=== PATIENT | male | born 1985 | race Caucasian/White ===

== ENCOUNTER 2021-02-24 01:31 | Emergency (ER) | payer MEDICAID, SELFPAY ==
[2021-02-24 01:32] VITALS: BP 155/88; PULSE 85; RESP 18; O2SAT 98
[2021-02-24 01:33] VITALS: PULSE 88; RESP 18; TEMP 36.6; O2SAT 98; BMI 28.8
[2021-02-24] MEDS: Phenobarbital 32.4 MG Tablet PO (02:18)
[2021-02-24] MEDS: proMETHazine 25 MG Tablet PO (02:18)
[2021-02-24] MEDS: 0.9% Normal Saline 1,000 ML 999 ML IV (02:43)
--- NOTE | 2021-02-24 03:26 | EDS_ITS ---
HPI History of Present Illness Chief Complaint: Substance Abuse Narrative Narrative: Patient is a 35-year-old male with a history of of heroin and fentanyl opioid abuse. He has been in an outpatient rehab facility for the last 3 to 4 days. He states he has been having some nausea with loose stool. He states has been taking the medications they have been providing but he feels like the medications are not helping enough. He states he cannot sleep because he is nervous and anxious and can not turn off his brain. Secondary to this he comes the ER for evaluation [facility] Medical History (Updated 02/24/21 @ 03:[address] Saulo Forrester DO) Overdose Renal failure Substance abuse Home Medications citalopram [Celexa] 20 mg PO DAILY 02/24/21 [History Last Taken Unknown] Allergy/AdvReac Type Severity Reaction Status Date / Time No Known Allergies Allergy Verified 02/24/21 01:37 Surgical History (Updated 02/24/21 @ 01:40 by Amelia Swan) Hx of tonsillectomy Social History Smoking Status: Current every day smoker tobacco type: cigarettes ROS ROS ED Constitutional Constitutional ED: Denies chills or fever(s) ENT ENT ED: Denies sore throat Cardiovascular Cardiovascular: Denies chest pain Respiratory/Chest Respiratory/Chest: Denies cough or dyspnea Gastrointestinal Gastrointestinal: Reports diarrhea and nausea; Denies abdominal pain or vomiting Genitourinary Genitourinary ED: Denies dysuria Musculoskeletal Musculoskeletal: Reports myalgias Integumentary Denies rash Neurologic Neurologic: Denies headache(s) Psychiatric Psychiatric: Reports anxiety; Denies suicidal ideation or suicidal thoughts Hematologic/Lymphatic Hematologic/Lymphatic: Denies easy bleeding or easy bruising EXAM Physical Exam Const Vital Signs: 02/24/21 01:32 02/24/21 01:33 Temperature 97.8 F Temperature Source Oral Pulse Rate 85 88 Respiratory Rate 18 18 Blood Pressure 155/88 H Blood Pressure Mean 110 Pulse Ox 98 98 Oxygen Delivery Method Room Air Room Air Positive well nourished and well developed General Appearance ED: well developed HEENT Reports dry mucous membranes Mouth ED: Yes dry mucous membranes Mouth: dry mucous membranes Eyes PERRL and EOMs intact bilaterally Neck supple Resp normal respiratory effort and clear to auscultation bilaterally Cardio regular rate and regular rhythm GI non-tender and non-distended GI Narrative: Bowel sounds are hyperactive Palpation: soft Extremity normal to inspection Neuro oriented x3 and CN's II-XII intact bilaterally Sensorium / Orientation: alert Psych Psych Narrative: No homicidal or suicidal ideation Mood & Affect: anxious Skin no rashes or lesions noted Skin Narrative: Skin turgor slightly increased MDM MDM MDM Narrative Medical decision making narrative: Patient presented to the ER with stable vitals. He reported he has been in an outpatient rehab for 3 to 4 days. Therefore at this time I do not feel there is need for admission to our facility for opioid withdrawal as he is already completed 72 to 96 hours. His exam shows mild opioid withdrawal symptoms and mild dehydration so he will be given a liter of fluid as well as oral Phenergan and phenobarbital. On reevaluation he is resting comfortably and was able to sleep with the medication provided. Therefo re at this time he will be discharged and can continue his outpatient treatment for opioid dependence and withdrawal. Discharge Plan Triage Chief Complaint: Substance Abuse ED Provider: Saulo Forrester Dx/Rx/DC Orders Clinical Impression: Opioid withdrawal Instructions: Addiction: Getting Help, ED Opioid Withdrawal Prescriptions: No Action citalopram [Celexa] 20 mg Tablet 20 mg PO DAILY RF: 0 Referrals: JUMANA HAIDER [Other] Disposition Disposition: Home, Self Care
[2021-02-24 04:08] VITALS: BP 119/76; PULSE 81; RESP 16; O2SAT 98
== END 2021-02-24 04:10 | disposition home or self-care (01) ==
PROVIDERS: Emergency Provider Emergency Medicine; Visit Provider Emergency Medicine
DX: F11.23 Opioid dependence with withdrawal (principal); F17.210 Nicotine dependence, cigarettes, uncomplicated
CPT/HCPCS: 96360; 99285; J7030; A4216

== ENCOUNTER 2021-02-24 20:28 | Emergency (ER) | payer MEDICAID, SELFPAY ==
[2021-02-24 20:29] VITALS: BP 135/87; PULSE 93; RESP 14; TEMP 36.4; O2SAT 97; BMI 28.6
[2021-02-24] MEDS: cycloBENZAPRine HCl 10 MG Tablet PO (21:08)
[2021-02-24] MEDS: Ketorolac 15 MG/ML Vial IV (21:08)
[2021-02-24] MEDS: 0.9% Normal Saline 1,000 ML 1000 ML IV (21:08)
[2021-02-24] MEDS: Ondansetron 4 MG/2 ML Vial IV (21:09)
[2021-02-24] MEDS: cloNIDine HCl 0.1 MG Tablet PO ×2 (21:14→22:47)
[2021-02-24 21:18] LABS: Absolute Lymphocyte Count 2.62 X10^3/uL (0.83-4.51); Absolute Neutrophil Count 4.3 X10^3/uL (2.0-7.7); Basophil# 0.03 X10^3/uL; Basophil% 0.4 % (0-1); Eosinophil# 0.13 X10^3/uL; Eosinophils% 1.7 % (0-5); Hematocrit 40.8 % (40-54); Hemoglobin 13.9 g/dL (13.0-16.5); Lymphocyte # 2.62 X10^3/ul (0.83-4.51); Lymphocyte % 33.5 % (19-41); Mean Corp Hgb Conc 34.1 g/dL (32-36); Mean Corpuscular Hgb 31.1 pg (27.0-32.0); Mean Corpuscular Volume 91.3 fL (80-94); Mean Platelet Vol. 8.6 fl (6.2-12.0); Monocyte# 0.74 X10^3/uL; Monocyte% 9.5 % (0-10); NRBC Flagged by Analyzer 0 % (0-5); Neutrophil # 4.27 X10^3/uL (2.7-7.7); Neutrophil % 54.6 % (47-70); Platelet Count 278 K/mm3 (150-450); RBC Distribution Width CV 12.9 % (11.6-14.6); RBC Distribution Width SD 42.6 fl (35.1-43.9); Red Blood Count 4.47 M/mm3 (4.6-6.2); White Blood Count 7.8 K/mm3 (4.4-11.0)
[2021-02-24 21:34] LABS: ALB/GLOB Ratio 0.9 RATIO (0.9-2.4); AST(SGOT) 26 U/L (15-37); Alanine Aminotransfer ALT/SGPT 74 U/L (16-61); Albumin, Serum 3.6 g/dL (3.2-5.0); Alkaline Phosphatase 77 U/L (45-117); Anion Gap 7 (5-15); BUN 15 mg/dL (7-18); BUN/Creat Ratio 17.6 RATIO (10-20); Calcium,Total 9.2 mg/dL (8.5-10.1); Chloride 108 mmol/L (98-107); Creatinine, Serum 0.85 mg/dL (0.70-1.30); EST Glomerular Filtration Rate 110 mL/min (>60); Est Glom Filt Rate - Afr Amer 133 mL/min (>60); Estimated Creatinine Clearance 119.59 ml/min; Glucose 109 mg/dL (74-106); Lipase 316 U/L (73-393); Potassium 4.9 mmol/L (3.5-5.1); Protein, Total 7.6 g/dL (6.4-8.2); Sodium Level 140 mmol/L (136-145)
[2021-02-24] MEDS: traMADol 50 MG Tablet PO (22:06)
[2021-02-24 22:25] LABS: CPK Total, Creatine Kinase 56 U/L (39-308)
[2021-02-24 22:28] VITALS: BP 182/134; PULSE 99; RESP 16; O2SAT 99
--- NOTE | 2021-02-24 22:40 | EX.ED.DYSGE1 ---
HPI History of Present Illness Chief Complaint: Abd Pain Informant: patient Narrative Narrative: Patient presents for control of withdrawal symptoms. He used to be on Suboxone until sometime in January. He uses fentanyl and does inject. He has not had fevers or chills. He also uses benzodiazepines up to 2 mg a day of Xanax. He is not sure how much fentanyl he uses because it varies. He states fentanyl is his biggest problem and he uses Xanax when he can. He has cramps, nausea. Sounds like he has not had diarrhea. No diaphoresis. He states he just feels bad. He has cramping in stomach and other areas. He is set to be back on Suboxone on Friday. He was here earlier. He had stated he was 3 days in detox. However, he states it was not detox but rehab. They did not provide medicines for withdrawal. He was using while he was there. His last use was 2 days ago. He states these are typical withdrawal symptoms for him. He does not use alcohol. [facility] Medical History Overdose Renal failure Substance abuse Home Medications citalopram [Celexa] 20 mg PO DAILY 02/24/21 [History Last Taken Unknown] clonidine HCl 0.1 mg PO TID PRN #10 tab 02/24/21 [Rx Last Taken Unknown] promethazine 25 mg PO Q6H PRN #10 tab 02/24/21 [Rx Last Taken Unknown] Allergy/AdvReac Type Severity Reaction Status Date / Time No Known Allergies Allergy Verified 02/24/21 20:34 Surgical History Hx of tonsillectomy Social History Smoking Status: Current every day smoker tobacco type: cigarettes ROS ROS ED Constitutional Constitutional ED: Reports chills and subjective; Denies fever(s) or sweats Eyes Eyes: Denies blurry vision ENT ENT ED: Reports rhinorrhea; Denies sore throat Cardiovascular Cardiovascular: Denies chest pain or palpitations Respiratory/Chest Respiratory/Chest: Denies cough, dyspnea or sputum Gastrointestinal Gastrointestinal: Reports abdominal pain and nausea; Denies diarrhea or vomiting Genitourinary Genitourinary ED: Denies dysuria Musculoskeletal Musculoskeletal: Reports myalgias; Denies arthralgias Integumentary Denies rash Neurologic Neurologic: Denies headache(s) Psychiatric Psychiatric: Reports anxiety Endocrine Endocrinology: Denies polydipsia or polyuria Allergic/Immunologic Allergic/Immunologic ED: Denies mouth swelling or urticaria EXAM Physical Exam Const Vital Signs: 02/24/21 20:29 02/24/21 22:28 Temperature 97.5 F L Temperature Source Temporal Pulse Rate 93 99 Respiratory Rate 14 16 Blood Pressure 135/87 H 182/134 H Blood Pressure Mean 103 150 Pulse Ox 97 99 Oxygen Delivery Method Room Air Room Air Positive well nourished and well developed General Appearance ED: well developed; Negative for cyanotic, diaphoretic or pallor HEENT Reports dry mucous membranes Mouth ED: Yes dry mucous membranes Mouth: dry mucous membranes Eyes General Eye ED: Negative for pale conjunctiva or scleral icterus Neck no JVD Chest Wall inspection of chest normal Resp normal respiratory effort and clear to auscultation bilaterally Effort and Inspection: Negative for pain with movement Auscultation: Negative for rales, rhonchi or wheezes Cardio regular rate and regular rhythm Rate: Negative for tachycardic GI normal to inspection, nondistended, normoactive bowel sounds, non-tender and non-distended Palpation: soft Back/Spine no CVA tenderness Extremity normal to inspection Neuro oriented x3 Sensorium / Orientation: alert Psych Attitude: agitated Mood & Affect: anxious and tearful Skin no rashes or lesions noted Skin Narrative: No diaphoresis or piloerection. General Skin Exam: Negative for jaundice or pallor MDM MDM MDM Narrative Medical decision making narrative: I did repeat some of the patient's blood work. CBC shows no acute process. Electrolytes look good. No sign of dehydration. LFTs are normal. CPKs normal. Lipase is normal. Patient is given IV fluids. He is given multiple meds to try to calm his symptoms. When I walk in the room, patient is resting quietly. After I walk in the room he starts shaking his legs. But he is feeling a bit better. We have added further medications. He has been given IV fluids. There is been no vomiting here. Blood pressure did go up. We will get more clonidine and also Benadryl to see if this helps him. We discussed with hospitalist. He would prefer to not admit with benzodiazepine use. He did request contact Dr. Way to get her input on possible benzo management. We can not reach her at this time. We will continue to try to help his symptoms so he can get followup Friday for Suboxone. He is much calmer after meds. We will give him 1 dose of benzodiazepine to try to help calm this down. I cannot admit him here. With the current Covid situation, transfer is not possible. He has arrangements for Suboxone in about 30 to 36 hours. I will write for some clonidine and Phenergan. He can also use [id number] Benadryl. He can also use Tylenol for any aches. Lab Data Attestation: I reviewed the patient's lab results. Labs: Laboratory Results - last 24 hr 02/24/21 02/24/21 02/24/21 21:07 21:07 21:07 WBC 7.8 RBC 4.47 L Hgb 13.9 Hct 40.8 MCV 91.3 MCH 31.1 MCHC 34.1 RDW Std Deviation 42.6 RDW Coeff of Josie 12.9 Plt Count 278 MPV 8.6 Immature Gran % (Auto) 0.300 Neut % (Auto) 54.6 Lymph % (Auto) 33.5 [place] % (Auto) 9.5 Eos % (Auto) 1.7 Baso % (Auto) 0.4 Absolute Neuts (auto) 4.3 Absolute Lymphs (auto) 2.62 Nucleated RBC % 0 Sodium 140 Potassium 4.9 Chloride 108 H Carbon Dioxide 25.0 Anion Gap 7 BUN 15 Creatinine 0.85 Estim Creat Clear Calc 119.59 Est GFR (MDRD) Af Amer 133 Est GFR (MDRD) Non-Af 110 BUN/Creatinine Ratio 17.6 Glucose 109 H Calcium 9.2 Total Bilirubin 0.20 AST 26 ALT 74 H Alkaline Phosphatase 77 Total Creatine Kinase 56 Total Protein 7.6 Albumin 3.6 Globulin 4.0 Albumin/Globulin Ratio 0.9 Lipase 316 Discharge Plan Triage Chief Complaint: Abd Pain ED Provider: Memo Rodriguez Dx/Rx/DC Orders Clinical Impression: Opioid withdrawal Instructions: ED Opioid Withdrawal Prescriptions: New clonidine HCl 0.1 mg tablet 0.1 mg PO TID PRN (Reason: withdrawal symptoms) Qty: 10 RF: 0 promethazine 25 mg tablet 25 mg PO Q6H PRN (Reason: nausea and vomiting) Qty: 10 RF: 0 No Action citalopram [Celexa] 20 mg Tablet 20 mg PO DAILY RF: 0 Referrals: JUMANA HAIDER [Other] - As soon as possible Disposition Disposition: Home, Self Care
[2021-02-24] MEDS: DiphenhydrAMINE 50 MG/ML Syringe 25 MG IV (23:51)
[2021-02-25] MEDS: LORazepam 2 MG/ML Syringe 0.5 MG IV (00:05)
[2021-02-25 00:18] VITALS: BP 132/68; PULSE 90; RESP 18; O2SAT 96
== END 2021-02-25 00:20 | disposition home or self-care (01) ==
PROVIDERS: Emergency Provider Emergency Medicine; Visit Provider Emergency Medicine
DX: F11.23 Opioid dependence with withdrawal (principal); F17.210 Nicotine dependence, cigarettes, uncomplicated
CPT/HCPCS: 80053; 82550; 83690; 85025; 96360; 96361; 96374; 96375; 99285; J7030; A4216; J2405